=== PATIENT | male | born 1950 | race Caucasian/White ===

== ENCOUNTER → 2020-01-15 | Outpatient (CLI) | payer MEDICARE, OTHER ==
[~2020-01-15] MED LIST: ANDRODERM1 EAC2 TD; KEFLEX500 MG PO; LIPITOR40 MG PO; NORCO 5-325 TA1 EACH PO
== END ==
LOC: M.LAB 07:52
PROVIDERS: ATTEND Internal Medicine Gastroenterology
DX: Z11.59 Encounter for screening for other viral diseases (principal); K92.1 Melena